=== PATIENT | male | born 1950 | race Caucasian/White ===

== ENCOUNTER → 2019-05-12 13:34 | Outpatient (CLI) | payer MEDICARE, BC, SELFPAY ==
--- NOTE | 2019-05-12 13:37 | US_ITS ---
APPROVED REPORT Exam Type: Lower Extremity Segmental Pressures Video Photographer: Mary Slade RVT Indications Numbness/Tingling CAD Risk Factors Hypertension CAD Cardiac Disease Diabetes History of Smoking Pressures/Indices Right Indices Left Indices Brachial 120.00 mmHg Brachial 126.00 mmHg Low Thigh 133.00 mmHg 1.06 Low Thigh 123.00 mmHg 0.98 Calf 106.00 mmHg 0.84 Calf 113.00 mmHg 0.90 Ankle(PT) 116.00 mmHg 0.92 Ankle(PT) 102.00 mmHg 0.81 Ankle(DP) 113.00 mmHg 0.90 Ankle(DP) 116.00 mmHg 0.92 Digit 78.00 mmHg 0.62 Digit 76.00 mmHg 0.60 Findings RT SHIRLEY:0.92 LT SHIRLEY:0.81 RT TBI:0.62 LT TBI:0.60 NORMAL WAVEFORMS ROSEY NORMAL PULSES ROSEY Conclusion The left SHIRLEY is slightly low suggesting mild to moderate arterial disease Electronically signed by : Chucky Rosas MD 05/13/2019 09:41:30
== END ==
PROVIDERS: PCP Family Medicine; Visit Provider Physician Assistant
DX: I73.9 Peripheral vascular disease, unspecified (principal)
CPT/HCPCS: 93923

== ENCOUNTER → 2022-03-13 12:51 | Outpatient (CLI) | payer MEDICARE, BC, SELFPAY ==
[2022-03-13 12:57] LABS: Coronavirus 19, PCR Not Detected (NotDetected); Influenza A, PCR Not Detected (NotDetected); Influenza B, PCR Not Detected (NotDetected)
[2022-03-13 13:33] LABS: Basophils # 0.1 K/mm3 (0-0.2); Basophils % 1.2 % (0.1-2.0); Eosinophils # 0.3 K/mm3 (0.0-0.4); Eosinophils % 2.7 % (0.1-12.0); Hematocrit 46.6 % (42.0-52.0); Hemoglobin 15.4 g/dL (14.1-18.0); Lymphocytes # 2.2 K/mm3 (0.7-4.5); Lymphocytes % 23.5 % (10-50); Mean Corpuscular HGB Conc 33.1 g/dL (31.8-35.4); Mean Corpuscular Hemoglobin 29.5 pg (27.0-31.2); Mean Corpuscular Volume 89.1 fl (80-94); Mean Platelet Volume 8.5 fl (7.4-10.4); Monocytes # 0.5 K/mm3 (0.1-1.0); Monocytes % 5.9 % (1.7-9.3); Neutrophils # 6.2 K/mm3 (1.8-7.8); Neutrophils % 66.7 % (37.0-80.0); Platelet Count 239 K/mm3 (142-424); Red Blood Count 5.24 M/mm3 (4.60-6.20); Red Cell Distribution Width 14.4 % (11.5-17.5); White Blood Count 9.3 K/mm3 (4.8-10.8)
[2022-03-13 14:14] LABS: Chloride 106 mmol/L (98-107); Potassium 4.5 mmoL/L (3.5-5.1); Sodium 138 mmol/L (136-145)
[2022-03-13 14:17] LABS: Blood Urea Nitrogen 11 mg/dl (9-20); Estimated Glomerular Filt Rate 96 ml/min (>60); GFR (African American) 116 ML/MIN (>60)
[2022-03-13 14:18] LABS: Anion Gap 11.5 mEq/L (5-15); Calcium 8.9 mg/dl (8.4-10.2); Carbon Dioxide 25 mmol/L (22.0-30.0); Glucose 243 mg/dl (74-100)
== END ==
PROVIDERS: PCP Family Medicine; Visit Provider Internal Medicine
DX: I11.9 Hypertensive heart disease without heart failure; I20.0 Unstable angina; R00.1 Bradycardia, unspecified; R06.09 Other forms of dyspnea; Z95.5 Presence of coronary angioplasty implant and graft; I63.9 Cerebral infarction, unspecified; Z01.812 Encounter for preprocedural laboratory examination; Z20.822 Contact with and (suspected) exposure to COVID-19
CPT/HCPCS: 36415; 80048; 85025; C9803; U0003; U0005

== ENCOUNTER 2022-03-16 08:18 | Day surgery (SDC) | payer MEDICARE, BC, SELFPAY ==
[2022-03-16] VITALS (15 sets, daily range): BP systolic 126–218; BP diastolic 61–121; PULSE 54–68; RESP 18–19; TEMP 36.6; O2SAT 95–98; BMI 48.1
--- NOTE | 2022-03-16 07:06 | IR_ITS ---
APPROVED REPORT Patient Location: Outpatient [employer] Medic: BOY Lora RT (R) PROCEDURES Left heart catheterization Left ventriculogram Selective coronary angiogram Drug-eluting stent deployment to the ostial proximal LAD Drug-eluting stent deployment to the distal left main artery INDICATION Coronary artery disease, Systolic congestive heart failure, Poor candidacy for bypass surgery based on being 300 pounds with numerous comorbidities, Accelerated angina pectoris Informed consent was obtained prior to the procedure. COMPLICATIONS None Estimated Blood Loss: Less than 10 mls TECHNIQUE One percent lidocaine used to anesthetize the right anterior aspect of the wrist. The right radial artery was accessed via the Seldinger technique. A 6 Ivorian sheath was placed in the right radial artery. 2.5 mg of verapamil, 800 mcg of nitroglycerin, 1mg Lidocaine and 5000 U Heparin were given through the arterial sheath. The papa catheter was also used to perform left heart catheterization, left ventriculogram and selective coronary angiogram. At the end the diagnostic angiogram therapeutic heparin was administered. I then broke scrub and discussed with the family the options of either bypass surgery or percutaneous stenting. Carina Alfaro nurse manager lsw accompany me during the discussion with the son daughter and . Because of patient's high BMI and morbid obesity accompanying by numerous comorbidities I suggested bypass surgery may not be the best option for this gentleman. I did discuss percutaneous revascularization and felt as though there was a high likelihood for achieving good success with stenting. All 3 of the family members agreed that stenting would be the best option and bypass surgery would be much higher risk and patient probably was not a candidate based on the above reasons. Because of this it was decided to percutaneous revascularization patient. I rescrubbed and checked an ACT with the ACT out of range. A Choice PT extra-support wire was placed down the LAD and a 3.5 x 26 mm resolute Adithya stent was deployed at 26 benito in the proximal LAD reducing the severe stenosis to 0%. A 4.5 x 12 mm resolute [place] stent was then perfectly placed distally in the left main artery reducing the stenosis to 10 to 20%. An additional 3.5 x 12 mm resolute Adithya stent was then placed in the ostium of the LAD overlapping the first stent which was placed in the LAD and deployed at 20 benito. A 5 mm x 8 mm balloon was then deployed at 20 benito in the distal left main artery to further post dilate reducing the stenosis to less than 10%. KATHY-3 flow was present down the LAD and left main before and after the procedure. After achieving excellent angiographic results the apparatus was removed the sheath was removed good hemostasis was achieved using TR banding patient was transferred to the postop putting in stable condition ANGIOGRAPHIC RESULTS The left main artery Has a distal concentric 60% stenosis The left anterior descending artery As proximal 70% stenoses followed by mid LAD stent which is widely patent with minimal in-stent restenosis The circumflex artery Is a dominant system and gives rise to a moderate sized ramus intermedius which has a proximal 60 to 70% stenosis which tapers into a smaller vessel. The circumflex artery itself has the 50% to 70% stenosis in the proximal segment however the vessel is only 2 mm in this area. Furthermore it supplies a small amount of myocardium. Distally this vessel has an additional 80% concentric stenosis where the vessel was approximately 1.5 mm The right coronary artery Vestigial in nature and patent with diffuse 40% atheromatous plaque The OFNSECA ventriculogram reveal
[2022-03-16 11:06] LABS: CATHL Activated Clotting Time > 400 SEC (74-125)
--- NOTE | 2022-03-16 11:43 | SUR.PHASEII ---
REPORT GIVEN TO RANDI RUBALCAVA RN IN POST OP
--- NOTE | 2022-03-16 12:28 | PC.NURSE ---
1138-Output - Urinal @ BS - 300 ml 1215- Output urinal- 500ml Urine is light yellow, clear
--- NOTE | 2022-03-16 13:18 | SUR.PHASEII ---
1230- Pt placed in recliner for comfort. Pt eating lunch. Tolerating eating and drinking well. Family at chair side
--- NOTE | 2022-03-16 13:19 | SUR.PHASEII ---
1330- patient reclined in chair watching TV with family at chair side. Pt urinated 450ml
--- NOTE | 2022-03-16 14:17 | HMH.PHACLD ---
Primitivo Sanchez has received discharge medication counseling on the following medications: PATIENT IS CURRENTLY TAKING EFFIENT 10 MG DAILY AND LISINOPRIL 10 MG DAILY. MD ADDING ASPIRIN 81 MG DAILY AND LASIX 40 MG DAILY. PATIENT HAS MYALGIAS WITH STATINS. MD NOT STARTING STATIN OR BETA MIREYA AT THIS TIME.
--- NOTE | 2022-03-16 14:22 | SUR.PHASEII ---
1414- applied sterile 2x2 gauze and tegaderm to radial site . No bleeding noted All instructions reviewed with family and questions answered Pt transported via [facility] escorted out. Pt stable
== END 2022-03-16 14:14 | disposition home or self-care (01) ==
LOC: CATHLAB 08:20
PROVIDERS: PCP Family Medicine; Visit Provider Internal Medicine
DX: I25.110 Atherosclerotic heart disease of native coronary artery with unstable angina pectoris; I11.0 Hypertensive heart disease with heart failure; I50.20 Unspecified systolic (congestive) heart failure; E11.9 Type 2 diabetes mellitus without complications; E66.01 Morbid (severe) obesity due to excess calories; R00.1 Bradycardia, unspecified; R06.09 Other forms of dyspnea; Z95.5 Presence of coronary angioplasty implant and graft; Z68.42 Body mass index [BMI] 45.0-49.9, adult; Z79.4 Long term (current) use of insulin; Z87.891 Personal history of nicotine dependence
CPT/HCPCS: 85347; 92928; 93458; 99152; 99153; C1725; C1760; C1769; C1876; C9600; J1644; Q9967

== ENCOUNTER → 2022-03-30 09:21 | Outpatient (CLI) | payer MEDICARE, BC, SELFPAY | PROVIDERS: PCP Internal Medicine; Visit Provider Internal Medicine | DX: I25.5 Ischemic cardiomyopathy (principal); I50.21 Acute systolic (congestive) heart failure; R06.09 Other forms of dyspnea | CPT/HCPCS: 93306 ==

== ENCOUNTER 2022-03-31 11:28 | Emergency (ER) | payer MEDICARE, BC, SELFPAY ==
[2022-03-31 11:29] VITALS: BP 101/67; PULSE 100; RESP 12; TEMP 36.8; O2SAT 98; BMI 48.2
--- NOTE | 2022-03-31 11:35 | ECG_ITS ---
APPROVED REPORT Exam: Resting ECG HR:93 bpm ECG Measurements Heart Rate 93 AXES QRSd 99 QRS -11 QT 364 T 80 QTc 415 Conclusion ATRIAL FIBRILLATION WITH ABERRANT CONDUCTION OR VENTRICULAR PREMATURE COMPLEXES SEPTAL MYOCARDIAL INFARCTION , PROBABLY OLD [40+ ms Q WAVE IN V1/V2] ABNORMAL ECG UNCONFIRMED REPORT Electronically signed by : Lamine Richard MD 04/03/2022 14:09:38
--- NOTE | 2022-03-31 11:41 | HMH.EDGENADL ---
ED Disposition Clinical Impression: Oliguria Disposition: Home, Self-Care Condition on Discharge: Good Additional Instructions: Decrease your dose of Coreg (Carvedilol) to 6.25 mg twice a day. Take Bumex [address] Pacheco on Sunday. Call Dr. Pacheco this weekend if any worsening or concerns. Referrals: Allen Ding [Primary Care Provider] - - Critical Care Critical Care Time: No Attestation: On , the high probability of a clinically significant, sudden or life threatening deterioration of the following system(s) required my full and direct attention, intervention and personal management. The time I documented below is in addition to time spent performing reported procedures but includes the following listed in this critical care notation. Medical Decision Making - Medical Records Medical records reviewed: Yes: I reviewed the patient's medical records. MR Comment: Reviewed cardiology office note from yesterday and also cardiology office note from 03/13/2022, precardiac cath. He had a cardiac cath on 03/16/2022. Result reviewed, see below. He had a cardiac echo this week, but report is not yet available. - Mitchel Inquiry Pt receiving controlled substance: No Vital Signs: 03/31/22 11:29 03/31/22 12:38 Temperature 98.2 F Temperature Source Oral Pulse Rate 90 Pulse Rate [Right Radial] 100 H Respiratory Rate 12 16 Blood Pressure 98/65 L Blood Pressure [Right Arm] 101/67 L Blood Pressure Mean 80 Blood Pressure Mean [Right Arm] 78 Blood Pressure Source [Right Arm] Automatic Cuff Blood Pressure Position [Right Arm] Sitting 02 Sat by Pulse Oximetry 98 95 Oxygen Delivery Method Room Air Room Air - Lab Data Lab Results 03/31/22 11:40: WBC 12.2 H, RBC 5.88, Hgb 17.0, Hct 53.3 H, MCV 90.6, MCH 29.0, MCHC 32.0, RDW 13.9, Plt Count 375, MPV 9.1, Neut % (Auto) 65.3, Lymph % (Auto) 24.9, [place] % (Auto) 5.5, Eos % (Auto) 2.5, Baso % (Auto) 1.7, Neut # (Auto) 8.0 H, Lymph # (Auto) 3.1, [place] # (Auto) 0.7, Eos # (Auto) 0.3, Baso # (Auto) 0.2 03/31/22 11:40: Sodium 137, Potassium 4.2, Chloride 102, Carbon Dioxide 27, Anion Gap 12.2, BUN 23 H, Creatinine 1.30 H, Estimated Creat Clear 48, Estimated GFR 55 L, Est GFR ( Amer) 66, Glucose 280 H, Calcium 9.3, Total Bilirubin 0.5, AST 27, ALT 25, Alkaline Phosphatase 152 H, NT-Pro-B Natriuret Pep 587 H, Total Protein 7.2, Albumin 3.9, Globulin 3.3 H, Albumin/Globulin Ratio 1.2 03/31/22 11:53: Urine Color Yellow, Urine Appearance Clear, Urine pH 5.5, Ur Specific [place] 1.015, Urine Protein Negative, Urine Glucose (UA) 3+, Urine Ketones Negative, Urine Blood Trace-i, Urine Nitrate Negative, Urine Bilirubin Negative, Urine Urobilinogen 0.2, Ur Leukocyte Esterase Negative, Urine RBC Occasional, Urine WBC Occasional, Ur Squamous Epith Cells Occasional, Urine Bacteria Trace Result diagrams: 03/31/22 11:40 03/31/22 11:40 Orders (Tests/Meds): ED MEDICATIONS Generic Name Dose Route Start Last Admin Trade Name Freq PRN Reason Stop Dose Admin Sodium Chloride 10 ml 03/31/22 12:19 Sodium Chloride 0.9% 10ml Flush Syringe IV 04/30/22 12:18 NEEDED PRN Maintain IV Site Recent cardiac cath: PROCEDURES Left heart catheterization Left ventriculogram Selective coronary angiogram Drug-eluting stent deployment to the ostial proximal LAD Drug-eluting stent deployment to the distal left main artery INDICATION Coronary artery disease, Systolic congestive heart failure, Poor candidacy for bypass surgery based on being 300 pounds with numerous comorbidities, Accelerated angina pectoris Informed consent was obtained prior to the procedure. COMPLICATIONS None Estimated Blood Loss: Less than 10 mls TECHNIQUE One percent lidocaine used to anesthetize the right anterior aspect of the wrist. The right radial artery was accessed via the Seldinger technique. A 6 Burmese sheath was placed in the right radial artery. 2.5 mg
[2022-03-31 12:22] LABS: Microscopic, Urine URINE MICROSCOPIC (MICROSCOPIC)
[2022-03-31 12:25] LABS: Appearance,Urine CLEAR (Clear); Bilirubin,Urine Negative (Negative); Blood, Urine TRACE-I (Negative); Color,Urine YELLOW (Yellow); Glucose,Urine (UA) 3+ (Negative); Ketones,Urine Negative (Negative); Leukocyte Esterase,Urine Negative (Negative); Nitrate,Urine Negative (Negative); PH,Urine 5.5 (5.0-8.5); Protein,Urine Negative (Negative); Specific Gravity, Urine 1.015 (1.005-1.030); Urobilinogen,Urine 0.2 EU/dl (0.2)
[2022-03-31 12:25] LABS: Basophils # 0.2 K/mm3 (0-0.2); Basophils % 1.7 % (0.1-2.0); Eosinophils # 0.3 K/mm3 (0.0-0.4); Eosinophils % 2.5 % (0.1-12.0); Hematocrit 53.3 % (42.0-52.0); Lymphocytes # 3.1 K/mm3 (0.7-4.5); Lymphocytes % 24.9 % (10-50); Mean Corpuscular Volume 90.6 fl (80-94); Mean Platelet Volume 9.1 fl (7.4-10.4); Monocytes # 0.7 K/mm3 (0.1-1.0); Monocytes % 5.5 % (1.7-9.3); Neutrophils % 65.3 % (37.0-80.0); Platelet Count 375 K/mm3 (142-424); Red Blood Count 5.88 M/mm3 (4.60-6.20); Red Cell Distribution Width 13.9 % (11.5-17.5); White Blood Count 12.2 K/mm3 (4.8-10.8)
[2022-03-31 12:26] LABS: Chloride 102 mmol/L (98-107); Potassium 4.2 mmoL/L (3.5-5.1); Sodium 137 mmol/L (136-145)
[2022-03-31 12:29] LABS: Alanine Aminotransferase 25 U/L (12-78); Albumin Level 3.9 g/dl (3.5-5.0); Albumin/Globulin Ratio 1.2 (1.1-1.8); Alkaline Phosphatase 152 U/L (38-126); Anion Gap 12.2 mEq/L (5-15); Aspartate Amino Transferase 27 U/L (17-59); Bilirubin,Total 0.5 mg/dl (0.2-1.3); Blood Urea Nitrogen 23 mg/dl (9-20); Calcium 9.3 mg/dl (8.4-10.2); Carbon Dioxide 27 mmol/L (22.0-30.0); Creatinine Clearance Estimated 48 mL/min (50-200); Estimated Glomerular Filt Rate 55 ml/min (>60); GFR (African American) 66 ML/MIN (>60); Globulin 3.3 g/dL (1.3-3.2); Glucose 280 mg/dl (74-100); Total Protein,Serum 7.2 g/dl (6.3-8.2)
[2022-03-31 12:38] VITALS: BP 98/65; PULSE 90; RESP 16; O2SAT 95
[2022-03-31 12:38] LABS: NT Pro Brain Natriuretic Pep. 587 pg/mL (0-125)
--- NOTE | 2022-03-31 12:44 | PC.NURSE ---
JIN BAER speaking with dr. corbin
[2022-03-31 12:45] LABS: Bacteria,Urine Trace /lpf; RBC,Urine Occasional #/hpf (0-3); Squamous Epithelial Cell,Urine Occasional #/hpf (0-5); WBC,Urine Occasional #/hpf (0-3)
--- NOTE | 2022-03-31 12:57 | PC.NURSE ---
JIN BAER speaking with dr. corbin
[2022-03-31 13:23] VITALS: BP 135/84; PULSE 88; RESP 20; TEMP 36.8; O2SAT 96
== END 2022-03-31 13:24 | disposition home or self-care (01) ==
PROVIDERS: Emergency Provider Emergency Medicine; PCP Family Medicine
DX: R34 Anuria and oliguria (principal); I11.0 Hypertensive heart disease with heart failure; I50.9 Heart failure, unspecified; I65.22 Occlusion and stenosis of left carotid artery; I25.119 Atherosclerotic heart disease of native coronary artery with unspecified angina pectoris; I48.91 Unspecified atrial fibrillation; I73.9 Peripheral vascular disease, unspecified; R78.5 Finding of other psychotropic drug in blood; E11.9 Type 2 diabetes mellitus without complications; Z79.01 Long term (current) use of anticoagulants; Z79.84 Long term (current) use of oral hypoglycemic drugs; Z79.899 Other long term (current) drug therapy; Z88.5 Allergy status to narcotic agent; Z88.8 Allergy status to other drugs, medicaments and biological substances; Z91.048 Other nonmedicinal substance allergy status; Z95.5 Presence of coronary angioplasty implant and graft; Z87.891 Personal history of nicotine dependence
CPT/HCPCS: 51702; 80053; 81001; 83880; 85025; 93005; 99285

== ENCOUNTER 2022-11-08 08:23 | Day surgery (SDC) | payer MEDICARE, BC, SELFPAY ==
[2022-11-08] VITALS (13 sets, daily range): BP systolic 98–147; BP diastolic 52–72; PULSE 42–63; RESP 16–20; O2SAT 95–98; BMI 48.7
--- NOTE | 2022-11-08 | CA_ITS ---
APPROVED REPORT EXAM: Comprehensive 2D, Doppler, and color-flow Echocardiogram Oil Well Engineer: Adalgisa Real RT(R) Ht: 5 ft 6 in Wt: 302lbs BSA: 2.38 BP: 130/68 mmHg Indications: CP, ex smoker, HTN, DM, SMALL, obesity, hyperlipidemia, CAD, CM, dysrhythmia noted. 2D Dimensions LVOT 2.10 cm (M/F) 1.5-2.5 M-Mode Dimensions RVDd 2.95 cm (0.9-2.6) LA Diam 4.99 cm (1.9-4.0) LVDd 5.62 cm (3.5-5.7) Ao Diam 2.83 cm (2.0-3.7) LVDs 4.02 cm (3.5-5.7) IVSd 1.12 cm (0.6-1.1) PWd 0.98 cm (0.6-1.1) EF (Teich) 54.30% FS 28.50% EDV (Teich) 154.90 mL ESV (Teich) 70.80 mL LV Diastology E Decel Time 290.00 (160-240 msec) E/A Ratio 0.9 LAT E' 7.70 (<10 cm/sec) E/LAT E' Ratio 7.79 (>14) Mitral Valve MV E Max Marco A. 60.00 (40-130 cm/s) MV A Velocity 67.00 (40-130 cm/s) E/A Ratio 0.89 MV Decel. Time 290.00 (160-240 ms) MV PHT 85.00 ms Left Ventricle Left atrium is mildly enlarged, left ventricle is normal size, mild concentric left ventricular hypertrophy, estimated ejection fraction 55% with no regional wall motion abnormality, grade 1 diastolic dysfunction seen without tissue Doppler evidence of raise left atrial pressure. Right Ventricle Right atrium and right ventricle are mildly enlarged with normal contractility. Aortic Valve Aortic valve is minimally thickened and fibrosed there is no aortic stenosis or aortic insufficiency. Mitral Valve Mitral valve is grossly normal, there is trace mitral regurgitation. Tricuspid Valve Tricuspid valve grossly normal, there is trace tricuspid regurgitation, tricuspid regurgitation jet plus is inadequate for calculation of the right ventricular systolic pressure. Pulmonic Valve Pulmonic valve is poorly visualized. Great Vessels Aortic root is normal size. Inferior vena cava is poorly visualized. Pericardium No significant pericardial effusion noted. Conclusion 1. Mild biatrial lodgment, normal left ventricular size mild concentric left ventricular hypertrophy, estimated ejection fraction 55% with no regional wall motion abnormality, grade 1 diastolic dysfunction seen without tissue Doppler evidence of late left atrial pressure. 2. Mildly enlarged right ventricle with normal contractility. 3. Trace mitral and tricuspid regurgitation. 4. No significant pericardial effusion noted. 5. Inferior vena cava is poorly visualized. Electronically signed by : Daniel Carlson MD 11/08/2022 12:59:19
--- NOTE | 2022-11-08 07:17 | IR_ITS ---
APPROVED REPORT Patient Location: Outpatient PROCEDURES Left heart catheterization Left ventriculogram Selective coronary angiogram Drug-eluting stent deployment to the proximal and mid and distal circumflex artery INDICATION Unstable angina, Coronary artery disease Informed consent was obtained prior to the procedure. COMPLICATIONS None Estimated Blood Loss: Less than 10 mls TECHNIQUE One percent lidocaine used to anesthetize the right anterior aspect of the wrist. The right radial artery was accessed via the Seldinger technique. A 6 Kittitian sheath was placed in the right radial artery. 2.5 mg of verapamil, 800 mcg of nitroglycerin, 1mg Lidocaine and 5000 U Heparin were given through the arterial sheath. The papa catheter was also used to perform left heart catheterization, left ventriculogram and selective coronary angiogram. At the end the diagnostic angiogram therapeutic heparin was administered giving a therapeutic ACT and a guide catheter was placed in left main artery followed by Choice PT extra-support wire being placed in the circumflex artery. Guide liner was required. A 2 mm x 30 mm resolute Adithya stent was deployed and deployed at 20 benito. An additional 2 mm x 12 mm resolute Adithya stent was placed distal to the for stent yet still overlapping it and deployed at 16 benito reducing the stenosis to 0%. A 2 mm x 20 mm balloon was required to predilate the stenosis to allow delivery of the 2 stents. KATHY-3 flow was present before and after the procedure. At the end the procedure the apparatus was removed the sheath was removed good hemostasis was achieved using TR banding patient was transferred to the postop putting in stable condition ANGIOGRAPHIC RESULTS The left main artery Has a stent in the proximal mid distal segment. There is an eccentric mid vessel 30% stenosis. The left anterior descending artery Is proximally normal and then has a stent in the proximal to mid segment which is widely patent free of in-stent restenosis with excellent transitioning in the proximal segment. The mid portion of the LAD stent has eccentric 30% stenosis. A large diagonal artery is widely patent. The circumflex artery Is a large dominant system and gives rise to a large ramus intermedius which has a proximal eccentric 40 to 50% stenosis. A high obtuse marginal artery also has diffuse 30% proximal mid vessel stenoses. The true circumflex artery itself has a proximal 80% stenosis mid vessel 80% stenosis and a distal concentric calcified 80 to 90% stenosis The right coronary artery Vestigial normal The FONSECA ventriculogram reveals Preserved at 50 to 55% The left ventricular end-diastolic pressure 30 mmHg IMPRESSION Coronary disease as described above Successful stenting of the proximal mid distal circumflex artery severe to critical disease reduced to 0% with 2 contiguous drug-eluting stents Preserved ejection fraction Elevated LVEDP PLAN 1. Dual antiplatelet therapy 2. Risk factor modification 3. Cardiac rehabilitation 4. Avoidance of tobacco products 5. Treatment of diastolic dysfunction 6. LDL less than 55 to be achieved with high intensity statin Electronically signed by : Jose Alejandro Pacheco MD 11/17/2022 11:07:50
[2022-11-08 09:33] LABS: Basophils # 0.1 K/mm3 (0-0.2); Basophils % 1.1 % (0.1-2.0); Eosinophils # 0.4 K/mm3 (0.0-0.4); Eosinophils % 3.4 % (0.1-12.0); Hematocrit 50.2 % (42.0-52.0); Hemoglobin 16.4 g/dL (14.1-18.0); Lymphocytes # 2.3 K/mm3 (0.7-4.5); Lymphocytes % 21.6 % (10-50); Mean Corpuscular HGB Conc 32.7 g/dL (31.8-35.4); Mean Corpuscular Hemoglobin 28.8 pg (27.0-31.2); Mean Corpuscular Volume 88.1 fl (80-94); Mean Platelet Volume 8.5 fl (7.4-10.4); Monocytes # 0.9 K/mm3 (0.1-1.0); Monocytes % 7.9 % (1.7-9.3); Neutrophils # 7.1 K/mm3 (1.8-7.8); Platelet Count 235 K/mm3 (142-424); Red Cell Distribution Width 14.7 % (11.5-17.5); White Blood Count 10.7 K/mm3 (4.8-10.8)
[2022-11-08 11:05] LABS: Chloride 114 mmol/L (98-107); Potassium 4.2 mmoL/L (3.5-5.1); Sodium 143 mmol/L (136-145)
[2022-11-08 11:08] LABS: Anion Gap 11.2 mEq/L (5-15); Blood Urea Nitrogen 18 mg/dl (9-20); Calcium 8.2 mg/dl (8.4-10.2); Carbon Dioxide 22 mmol/L (22.0-30.0); Creatinine Clearance Estimated 62 mL/min (50-200); Estimated Glomerular Filt Rate 83 ml/min (>60); GFR (African American) 101 ML/MIN (>60); Glucose 131 mg/dl (74-100)
[2022-11-08 13:00] LABS: CATHL Activated Clotting Time > 400 SEC (74-125)
--- NOTE | 2022-11-08 15:27 | HMH.PHACL ---
[facility] Cluster Bore Operator Discharge Med Quarantine Officer: Primitivo Sanchez has received discharge medication counseling on the following medications: -NO STATIN DUE TO MYALGIAS -NO ASPIRIN DUE TO BLEEDING RISK -PLAVIX (BLOOD THINNER, DAILY, BLEED/BRUISE RISK, BLEED LOCATION AND APPEARANCE, BUMP HEAD = GO TO ER, SOB POSSIBLE) -CARVEDILOL (ON PREVIOUSLY, NO QUESTIONS) -ENTRESTO (ON PREVIOUSLY, NO QUESTIONS) -METFORMIN (HOLD UNTIL 11/10/22) PATIENT STATED IN REGARDS TO NEW MEDICATIONS THAT HE WASN'T GOING TO TAKE IT IF IT WILL AFFECT HIS MUSCLES OR CAUSE HIM NOSEBLEEDS. COUNSELED OVER IMPORTANCE OF TAKING TO PREVENT STENT CLOSURE OR STROKE, PATIENT STATES HE'D RATHER SUFFER THAT THEN HAVE TO DEAL WITH NOSEBLEEDS/WAKING UP IN THE MIDDLE OF THE NIGHT FEELING LIKE HE WAS CHOKING FROM NOSEBLEEDS. PATIENT STATES YOU ALL SHOULD BE MORE CONSIDERATE ON HOW I FEEL REGARDING NEW MEDICATIONS . PATIENT AND VERBALIZED NO QUESTIONS AT THIS TIME.
== END 2022-11-08 15:29 | disposition home or self-care (01) ==
PROVIDERS: PCP Family Medicine; Visit Provider Internal Medicine
DX: I25.110 Atherosclerotic heart disease of native coronary artery with unstable angina pectoris (principal); E78.5 Hyperlipidemia, unspecified; E11.9 Type 2 diabetes mellitus without complications; Z79.4 Long term (current) use of insulin; I25.5 Ischemic cardiomyopathy; T82.855A Stenosis of coronary artery stent, initial encounter; Y83.1 Surgical operation with implant of artificial internal device as the cause of abnormal reaction of the patient, or of later complication, without mention of misadventure at the time of the procedure; Z79.899 Other long term (current) drug therapy; Z79.01 Long term (current) use of anticoagulants; I11.9 Hypertensive heart disease without heart failure; E66.01 Morbid (severe) obesity due to excess calories; Z68.42 Body mass index [BMI] 45.0-49.9, adult
CPT/HCPCS: 80048; 85025; 85347; 92928; 93306; 93458; 99152; 99153; C1725; C1760; C1769; C1876; C9600; J1644; Q9967

== ENCOUNTER 2023-03-06 06:49 | Day surgery (SDC) | payer MEDICARE, BC, SELFPAY ==
[2023-03-05 10:06] VITALS: BMI 48.4
[2023-03-06 07:20] VITALS: BP 153/60; PULSE 54; RESP 18; TEMP 36.2; O2SAT 96
[2023-03-06 07:28] LABS: POC Glucose,Bedside 119 (70-110)
[2023-03-06 08:20] VITALS: BP 178/96; PULSE 51; RESP 16; O2SAT 97
[2023-03-06 08:25] VITALS: BP 164/74; PULSE 53; RESP 16; O2SAT 99
[2023-03-06 08:30] VITALS: BP 151/69; PULSE 49; RESP 17; O2SAT 100
[2023-03-06 08:35] VITALS: BP 151/66; PULSE 48; RESP 16; O2SAT 100
[2023-03-06 08:37] VITALS: BP 126/84; PULSE 52; RESP 18; TEMP 36.1; O2SAT 94
== END 2023-03-06 08:48 | disposition home or self-care (01) ==
LOC: OR 06:50
PROVIDERS: PCP Family Medicine; Visit Provider Ophthalmology
DX: E11.36 Type 2 diabetes mellitus with diabetic cataract (principal); H25.9 Unspecified age-related cataract
CPT/HCPCS: 66984; 82962; V2632

== ENCOUNTER 2023-03-20 06:25 | Day surgery (SDC) | payer MEDICARE, BC, SELFPAY ==
[2023-03-15 14:14] VITALS: BMI 36.5
[2023-03-20] VITALS (7 sets, daily range): BP systolic 152–213; BP diastolic 69–93; PULSE 50–56; RESP 18; TEMP 36.1–36.4; O2SAT 95–100
[2023-03-20 07:06] LABS: POC Glucose,Bedside 85 (70-110)
== END 2023-03-20 08:30 | disposition home or self-care (01) ==
PROVIDERS: PCP Family Medicine; Visit Provider Ophthalmology
DX: E11.36 Type 2 diabetes mellitus with diabetic cataract (principal); H25.9 Unspecified age-related cataract
CPT/HCPCS: 66982; 82962; V2632

== ENCOUNTER 2024-03-19 15:15 | Outpatient (CLI) | payer MEDICARE, BC, SELFPAY ==
--- NOTE | 2024-03-19 | CA_ITS ---
APPROVED REPORT EXAM: Comprehensive 2D, Doppler, and color-flow Echocardiogram Tire Beader Maker: PIERCE Sexton, RVS Ht: 5 ft 6 in Wt: 257lbs BSA: 2.22 BP: 95/52 mmHg Indications: H/O CM,Pre-op assessment for throat cancer, HTN, DM, Obesity, HLD 2D Dimensions IVSd 0.98 cm M: 0.6-1.2 LVEF (Visual) 48.20 % PWd 1.22 cm M: 0.6 - 1.2 LA Volume 70.30 mL LVDd 5.99 cm M: 4.2 - 5.9 LA Volume Index 31.52 mL/m2 (M/F) 16-34 LVDs 4.51 cm M: 2.5 - 4.0 Left Atrium 4.69 cm M: 3.0 - 4.0 M-Mode Dimensions RVDd 2.82 cm (0.9-2.6) LA Diam 5.45 cm (1.9-4.0) LVDd 5.19 cm (3.5-5.7) LVDs 3.34 cm (3.5-5.7) IVSd 1.33 cm (0.6-1.1) PWd 1.13 cm (0.6-1.1) EF (Teich) 64.80% EPSs 0.97 cm FS 35.60% EDV (Teich) 128.90 mL TAPSE 2.38 (<1.7) ESV (Teich) 45.40 mL LV Diastology E Decel Time 287 (160-240 msec) E/A Ratio 0.90 MED A' 6.40 cm/s LAT A' 8.50 cm/s Aortic Valve LISANDRO Index 0.79 cm2/m2 AoV Peak Marco A. 146.0 (50-130 cm/s) AO Peak GR. 8.50 mmHg AO Mean GR. 4.20 (<5 mmHg) AO VTI 32.1 (18-25 cm) LISANDRO (VTI) 1.81 (2.5-4.5 cm2) Mitral Valve MV A Velocity 85.0 (40-130 cm/s) E/A Ratio 0.90 MV Mean Gr. 1.30 (<2mmHg) Pulmonary Valve PV Peak Velocity 108.0 (50-150 cm/s) MO End VMAX 133.0 cm/s Tricuspid Valve TR P. Velocity 188.00 cm/s RAP Estimate 10.00 mmHg RVSP 24.10 mmHg Left Ventricle The left ventricle is normal size. The left ventricular systolic function is normal. The left ventricular ejection fraction is within the normal range. There is increased LV wall thickness. There is normal LV segmental wall motion. The left ventricular diastolic function is normal. LVEF is 55%. Right Ventricle The right ventricle is normal size. The right ventricular systolic function is normal. Atria Left atrium is mildly dilated. The right atrium size is normal. There is no Doppler evidence of interatrial shunt. Aortic Valve The aortic valve is mildly thickened. There is no aortic valvular stenosis. Trace aortic regurgitation. Mitral Valve The mitral valve is normal in structure. No evidence of mitral valve stenosis. Mild mitral regurgitation. Tricuspid Valve The tricuspid valve leaflets are thin and pliable. Trace tricuspid regurgitation. There is insufficient TR jet to estimate RVSP. Pulmonic Valve The pulmonary valve is normal in structure. Mild pulmonic regurgitation. Great Vessels The aortic root is normal in size. The ascending aorta is normal in size. IVC is normal in size and collapses >50% with inspiration. Pericardium There is no pericardial effusion. Other Information Study Quality: Fair Conclusion Normal biventricular systolic function. Mild LA dilation. Mild MR. Electronically signed by : Giselle Larose MD 03/19/2024 22:16:22
== END 2024-03-19 23:59 | disposition home or self-care (01) ==
LOC: RT 15:16
PROVIDERS: PCP Family Medicine; Visit Provider Physician Assistant
DX: I25.10 Atherosclerotic heart disease of native coronary artery without angina pectoris (principal); I42.9 Cardiomyopathy, unspecified
CPT/HCPCS: 93306

== ENCOUNTER 2024-10-30 08:20 | Outpatient (CLI) | payer MEDICARE, BC, SELFPAY ==
--- NOTE | 2024-10-30 08:23 | CA_ITS ---
APPROVED REPORT EXAM: Limited 2D Echocardiogram Clerical Associate: Mary Slade RVT Ht: 5 ft 6 in Wt: 212lbs BSA: 2.05 BP: 150/81 mmHg Indications: FATIGUE,CP,HTN,DM,HLD,THROAT CA HX,EF CHECK,HX OF CM 2D Dimensions IVSd 1.23 cm M: 0.6-1.2 LVEF (Visual) 62.50 % PWd 1.09 cm M: 0.6 - 1.2 LVDd 4.52 cm M: 4.2 - 5.9 LVDs 3.00 cm M: 2.5 - 4.0 M-Mode Dimensions LA Diam 4.98 cm (1.9-4.0) Other Information Study Quality: Fair Conclusion This is a limited TTE to evaluate for LV systolic function. Limited windows are obtained. The left ventricle is normal in size. There is increased LV wall thickness. There is normal global LV systolic function. No regional wall motion abnormalities are noted. LVEF is 60%. Electronically signed by : Giselle Larose MD 10/30/2024 12:39:53
== END 2024-10-30 23:59 | disposition home or self-care (01) ==
PROVIDERS: PCP Family Medicine; Visit Provider Physician Assistant
DX: I25.5 Ischemic cardiomyopathy (principal); I25.10 Atherosclerotic heart disease of native coronary artery without angina pectoris; Z95.5 Presence of coronary angioplasty implant and graft; R53.83 Other fatigue
CPT/HCPCS: 93308

== ENCOUNTER 2025-05-06 07:33 | Outpatient (CLI) | payer MEDICARE, SELFPAY ==
--- OUTSIDE RECORDS SUMMARY | 2025-05-06 07:35 | XMS_ITS | Encounter Summary ---
Author Organization [facility] Address [address] [place] [address] Care Team Providers Care Electric Locomotive Firer/Fireman Name Role Phone Allen Ding MD Primary Care Provider [phone] Reason for Visit * Reason Comments Med Refill Encounter Details Date Type Department Care Team (Late st Contact Info) Description 02/22/2024 Refill [facility] [address] [place] [address] Allen Ding MD [address] [facility] [place] [address] Social History Tobacco Use Types Packs/Day Years Used Date Smoking Tobacco: Former Cigarettes 0.5 2 0 12/01/2007 - 11/30/2009 Smokeless Tobacco: Current Chew Alcohol Use Standard Drinks/Week Comments Never 0 (1 standard drink = 0.6 oz pur e alcohol) PHQ-2 Answer Date Recorded Retired PHQ-9: Brief Depression Severity Measure Score 0 04/25/2023 PHQ-2 Answer Date Recorded Retired PHQ-9: Brief Depression Severity Measure Score 0 11/13/2023 Sex and Gender Information Value Date Recorded Sex Assigned at Not on file Legal Sex Male 1:41 PM EDT Gender Identity Not on file Sexual Orientation Not on file documented as of this encounter Plan of Treatment Upcoming Encounters Date Type Department Care Team (Late st Contact Info) Description 05/29/2025 9:00 AM EDT Office Visit [facility] [address] [place] [id number] Allen Ding MD [address] [facility] [place] [address] documented as of this encounter Visit Diagnoses Not on filedocumented in this encounter Care Teams Electric Locomotive Firer/Fireman Relationship Specialty Start Date End Date Allen Ding MD [address] [place] [address] PCP - General 09/20/15 documented as of this encounter
--- OUTSIDE RECORDS SUMMARY | 2025-05-06 07:35 | XMS_ITS | Encounter Summary ---
Author Organization [facility] Address [address] [place] [address] Care Team Providers Care Drop Press Hand Name Role Phone Allen Ding MD Primary Care Provider Reason for Visit * Reason Onset Date Comments Med Refill 04/12/2023 Encounter Details Date Type Department Care Team (Late st Contact Info) Description 04/12/[address] [facility] [address] [place] [id number] Allen Ding MD [address] [place], [place] [id number] Acute idiopathic gout of multiple sites; Acute gout of ankle, unspecified cause, unspecified laterality Social History Tobacco Use Types Packs/Day Years Used Date Smoking Tobacco: Former Smokeless Tobacco: Current Chew PHQ-2 Answer Date Recorded Retired PHQ-9: Brief Depression Severity Measure Score 0 09/29/2022 Sex and Gender Information Value Date Recorded Sex Assigned at Not on file Legal Sex Male 1:41 PM EDT Gender Identity Not on file Sexual Orientation Not on file documented as of this encounter Miscellaneous Notes * Telephone Encounter - Annelise Mitchell RegSched Rep - 04/12/2023 3:21 PM EDT Caller: Crystal Sanchez Relationship: Emergency Contact Best call back number: [phone] Requested Prescriptions: Requested Prescriptions Pending Prescriptions Disp Refills colchicine 0.6 MG tablet 30 tablet 1 Sig: TAKE 1 TABLET BY MOUTH 4 TIMES DAILY. STOP IF DIARRHEA. HYDROcodone-acetaminophen (NORCO) 5-325 MG per tablet Pharmacy where request should be sent: [id number] - [facility] - [place], [place] - [address] [facility] - [phone] - [phone] FX Last office visit with prescribing clinician: 01/05/2023 Last telemedicine visit with prescribing clinician: Visit date not found Next office visit with prescribing clinician: 04/25/2023 Additional details provided by patient: PATIENTS STATES HE HAS TODAY LEFT OF MEDICATION ONLY: 04.12.23. SHE STATES THE HYDROCODONE IS RUNNING LOW WELL. SHE STATES SHE NEEDS IT REFILLED MARTHA. Bisi Plummer Rep 04/12/23 15:21 EDT documented in this encounter Plan of Treatment Upcoming Encounters Date Type Department Care Team (Late st Contact Info) Description 05/29/2025 9:00 AM EDT Office Visit [facility] [address] [place] [phone] Allen Ding MD [address] [place] [address] documented as of this encounter Visit Diagnoses Diagnosis Acute idiopathic gout of multiple sites Acute gout of ankle, unspecified cause, unspecified laterality documented in this encounter Care Teams Drop Press Hand Relationship Specialty Start Date End Date Allen Ding MD [address] [place] [address] PCP - General 09/20/15 documented as of this encounter
--- OUTSIDE RECORDS SUMMARY | 2025-05-06 07:35 | XMS_ITS | Encounter Summary ---
Author Organization [facility] Address [address] [place] [address] Care Team Providers Care Auditing Clerk Name Role Phone Allen Ding MD Primary Care Provider [phone] Encounter Details Date Type Department Care Team (Late st Contact Info) Description 03/09/2025 Results Follow-Up [facility] [address] [facility] [address] Allen Ding MD [address] [facility] [address] Social History Tobacco Use Types [...] Retired PHQ-9: Brief Depression Severity Measure Score 3 05/27/2024 Sex and Gender Information Value Date Recorded Sex Assigned at Not on file Legal Sex Male 1:41 PM EDT Gender Identity Not on file Sexual Orientation Not on file documented as of this encounter Plan of Treatment Upcoming Encounters Date Type Department Care Team (Late st Contact Info) Description 05/29/2025 9:00 AM EDT Office Visit [facility] [address] [facility] [place] [address] Allen Ding MD [address] [place] [address] documented as of this encounter Visit Diagnoses Not on filedocumented in this encounter Additional Health Concerns Assessment Noted Time PHQ-2 Depression Total Score: 3 05/27/20 24 8:19 AM EDT documented as of this encounter Care Teams Auditing Clerk Relationship Specialty Start Date End Date Allen Ding MD [address] [place] [address] PCP - General 09/20/15 documented as of this encounter
--- OUTSIDE RECORDS SUMMARY | 2025-05-06 07:35 | XMS_ITS | Encounter Summary ---
Author Organization [facility] Address [address] [place] [id number] Care Team Providers Care Hotel Services Sales Representative Name Role Phone Allen Ding MD Primary Care Provider Reason for Referral * Medical Care (Routine) - Closed Specialty Diagnoses / Procedures Referred By Contac t Referred To Contact Diagnoses Uncontrolled nonfamilial obstructive sleep apnea Procedures Overnight Sleep Oximetry Study Allen Ding MD [address] [place] [address] Phone: tel: fax: [place] [address] Phone: tel: fax: Referral ID Status Reason Start Date Expiration Date Visits Re quested Visits Authorized [id number] Closed 12/03/2024 03/04/2026 1 1 Encounter Details Date Type Department Care Team (Late st Contact Info) Description 12/03/2024 Results Follow-Up [facility] [address] [place] [address] Allen Ding MD [address] [place] [address] Social History Tobacco Use Types [...] Description 05/29/2025 9:00 AM EDT Office Visit [facility] [address] [place] [phone] Allen Ding MD [address] [place] [address] documented as of this encounter Results * Overnight Sleep Oximetry Study (12/03/2024) Allen Ding MD RESPIRATORY CARE ORDERABLES Fin al Result documented in this encounter Visit Diagnoses Diagnosis Uncontrolled nonfamilial obstructive sleep apnea- Primary documented in this encounter Additional Health Concerns Assessment Noted Time PHQ-2 Depression Total Score: 3 05/27/20 24 8:19 AM EDT documented as of this encounter Care Teams Hotel Services Sales Representative Relationship Specialty Start Date End Date Allen Ding MD [address] [place] [address] PCP - General 09/20/15 documented as of this encounter
--- OUTSIDE RECORDS SUMMARY | 2025-05-06 07:35 | XMS_ITS | Encounter Summary ---
Author Organization [facility] Address [address] [place] [address] Care Team Providers Care Licensed Master Social Worker Name Role Phone Allen Ding MD Primary Care Provider [phone] Reason for Visit * Reason Comments Med Refill Encounter Details Date Type Department Care Team (Late st Contact Info) Description 09/14/[address] [facility] [address] [place] [address] Allen Ding MD [address] [place] [address] Type 2 diabetes mellitus without complication, without long-term current use of insulin Social History Tobacco Use Types Packs/Day Years Used Date Smoking Tobacco: Former Smokeless Tobacco: Current Chew PHQ-2 Answer Date Recorded Retired Total Score 0 03/17/2020 Sex and Gender Information Value Date Recorded Sex Assigned at Not on file Legal Sex Male 1:41 PM EDT Gender Identity Not on file Sexual Orientation Not on file documented as of this encounter Plan of Treatment Upcoming Encounters Date Type Department Care Team (Late st Contact Info) Description 05/29/2025 9:00 AM EDT Office Visit [facility] [address] [place] [address] Allen Ding MD [address] [place] [address] documented as of this encounter Visit Diagnoses Diagnosis Type 2 diabetes mellitus without complication, without long-term current use of insulin documented in this encounter Additional Health Concerns Infection Onset Date Last Indicated Resolved Time C.difficile (rule out) 01/09/2023 01/10/202301/15 9:08 PM EDT documented as of this encounter Care Teams Licensed Master Social Worker Relationship Specialty Start Date End Date Allen Ding MD [address] [address] PCP - General 09/20/15 documented as of this encounter
--- OUTSIDE RECORDS SUMMARY | 2025-05-06 07:35 | XMS_ITS | Encounter Summary ---
Author Organization [facility] Address [address] [place] [address] Care Team Providers Care Poultry Farm Laborer Name Role Phone Allen Ding MD Primary Care Provider [phone] Reason for Visit * Reason Comments Med Refill Encounter Details Date Type Department Care Team (Late Contact Info) Description 10/06/2023 Refill [facility] [address] [place] [address] Allen Ding MD [address] [facility] [place] [address] Social History Tobacco Use Types Packs/Day Years Used Date Smoking Tobacco: Former Smokeless Tobacco: Current Chew PHQ-2 Answer Date Recorded Retired PHQ-9: Brief Depression Severity Measure Score 0 04/25/2023 PHQ-2 Answer Date Recorded Retired PHQ-9: Brief Depression Severity Measure Score 0 04/25/2023 Sex and Gender Information Value Date Recorded Sex Assigned at Not on file Legal Sex Male 1:41 PM EDT Gender Identity Not on file Sexual Orientation Not on file documented as of this encounter Plan of Treatment Upcoming Encounters Date Type Department Care Team (Late Contact Info) Description 05/29/2025 9:00 AM EDT Office Visit [facility] [address] [place] [address] Allen Ding MD [address] [facility] [place] [address] documented as of this encounter Visit Diagnoses Not on filedocumented in this encounter Care Teams Poultry Farm Laborer Relationship Specialty Start Date End Date Allen Ding MD [address] [facility] [place] [address] PCP - General 09/20/15 documented as of this encounter
--- OUTSIDE RECORDS SUMMARY | 2025-05-06 07:35 | XMS_ITS | Clinical Summary ---
Author Organization [facility] Address [address] [place] [id number] Care Team Providers Care Resawyer Name Role Phone Allen Ding MD Primary Care Provider [phone] Allergies Active Allergy Reactions Criticality Noted Date Comments Adhesive Tape Rash Low 11/26/2019 Atorvastatin Other (See Comments) 03/10/2016 Rosuvastatin 03/10/2016 Metformin GI Intolerance 04/25/2023 Medications albuterol sulfate HFA 108 (90 Base) MCG/ACT inhalerIndicatio ns:Dyspnea on exertion 1-2 puffs q 4-6 hours PRN 18 g 5 1 Active nitroglycerin (Nitrostat) 0.[address] 1 tablet under the tongue Every 5 (Five) Minutes As Needed for Chest Pain. Seek medical attention if not better 25 tablet 1 2 Active colchicine 0.6 MG tabletIndication s:Acute idiopathic gout of multiple sites TAKE 1 TABLET BY MOUTH 4 TIMES DAILY STOP IF DIARRHEA 30 tablet 2 3 Active Insulin Pen Needle (BD Pen Needle Micro U/F) 32G X 6 MM miscIndications: Type 2 diabetes mellitus with diabetic neuropathy, without long-term current use of insulin 1 daily as directed 100 each 11 4 Active metoclopramide (REGLAN) 10 MG tablet TAKE 1 TABLET BY MOUTH THREE TIMES DAILY 30 MINUTES BEFORE TUBE FEEDINGS 4 Active Morphine 10 MG/5ML solution TAKE 5 ML BY MOUTH EVERY 4 TO 6 HOURS NEEDED 4 Active Morphine (MS CONTIN) 15 MG 12 hr tablet Take 1 tablet by mouth Every 12 (Twelve) Hours. 4 Active naloxone (NARCAN) 4 MG/0.1ML nasal spray ADMINISTER A SINGLE SPRAY INTRANASALLY INTO ONE NOSTRIL. CALL 911. JANUARY REPEAT X1. 4 Active ondansetron (ZOFRAN) 4 MG tablet TAKE 2 TABLETS BY MOUTH TWICE DAILY FOR 20 DAYS 4 Active sucralfate (Carafate) 1 GM/10ML suspensionIndica tions:Radiation gastritis,Gastro esophageal reflux disease, unspecified whether esophagitis present 10 mL PO Q 6 hours PRN 400 mL 4 Active dicyclomine (BENTYL) 20 MG tablet 4 Active potassium chloride (KAYCIEL) 20 mEq/15 mL solution 4 Active Insulin Lispro (HumaLOG KwikPen) 200 UNIT/ML solution pen-injectorIndi cations:Type 2 diabetes mellitus with diabetic neuropathy, without long-term current use of insulin Inject 10 Units under the skin into the appropriate area as directed 3 times a day. 6 mL 4 4 Active pantoprazole (PROTONIX) 40 MG EC tablet Take 1 tablet by mouth Daily. 90 tablet 1 5 Active ferrous sulfate 325 (65 FE) MG tablet Take 1 tablet by mouth Daily With Breakfast. 30 tablet 5 5 Active Plecanatide (Trulance) 3 MG tabletIndication s:Chronic idiopathic constipation Take 1 tablet by mouth Every Morning. 90 tablet 1 5 Active vitamin D (ERGOCALCIFEROL) 1.25 MG (89306 UT) capsule capsule Take 1 capsule by mouth once a week 13 capsule 5 Active Xarelto 20 MG tablet Take 1 tablet by mouth once daily 90 tablet 5 Active Jardiance 10 MG tablet tabletIndication s:Chronic systolic congestive heart failure Take 1 tablet by mouth once daily 90 tablet 5 Active allopurinol (ZYLOPRIM) 300 MG tabletIndication s:Acute gout of ankle, unspecified cause, unspecified laterality Take 1 tablet by mouth once daily 90 tablet 5 Active escitalopram (LEXAPRO) 10 MG tabletIndication s:Acute stress disorder Take 1 tablet by mouth Daily. 90 tablet 1 5 Active Tresiba FlexTouch 100 UNIT/ML solution pen-injector injectionIndicat ions:Type 2 diabetes mellitus with diabetic neuropathy, without long-term current use of insulin Inject 20 Units under the skin into the appropriate area as directed Daily. 45 mL 5 5 Active zolpidem (AMBIEN) 10 MG tabletIndication s:Primary insomnia Take 1 tablet by mouth At Night As Needed for Sleep. 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 11/25/2019 Diabetic polyneuropathy asso ciated with type 2 diabetes mellitus 06/18/2019 Chronic idiopathic constipation 09/04/2018 First degree heart block 03/05/2018 Hypertensive heart disease w ith chronic systolic congestive heart failure 03/05/2018 Peripheral arterial occlusive disease 03/05/2018 Type 2 diabetes mellitus wit h diabetic neuropathy, without long-term current use of insulin 03/10/2016 Obstructive sleep apnea syndrome 03/10/2016 Overview (06/28/2022): Not using CPAP Hypercholesterolemia 03/10/2016 Chronic coronary artery disease 03/10/2016 Vitamin D deficiency 03/10/2016 Essential hypertension 03/10/2016 Gastroesophageal reflux disease without esophagi tis 03/10/2016 Resolved Problems Problem Noted Date Diagnosed Date Resolved Date Tachycardia 08/07/2023 02/22/2024 Systolic CHF 08/07/2023 12/03/2024 Sinus bradycardia 08/07/2023 02/22/2024 Diabetic leg ulcer 08/07/2023 Angina pectoris 08/07/2023 08/26/2024 Old myocardial infarction 03/05/2018 Presence of stent in artery 03/05/2018 12/03/2024 Obesity, morbid, BMI 50 or higher 12/12/2016 05/27/2024 Abnormal stress test 06/05/2016 018 Chest pressure 06/05/2016 06/12/2016 Dyspnea on exertion 06/05/2016 06/29/20 21 Fatigue 06/05/2016 06/29/2021 Hearing loss 06/05/2016 06/29/2021 Left ankle pain 06/05/2016 06/05/2018 Left foot pain 06/05/2016 06/05/2018 Muscle pain 06/05/2016 02/22/2024 Urination decrease 06/05/2016 8 Encounters Date Type Department Care Team Description 03/09/2025 Results Follow-Up [facility] [address] [place] [phone] Allen Ding MD 03/06/2025 8:30 AM EDT Office Visit [facility] [address] [phone] Allen Ding MD Type 2 diabetes mellitus with diabetic neuropathy, without long-term current use of insulin (Primary Dx); Acute stress disorder; Acute gout of ankle, unspecified cause, unspecified laterality; Hypercholesterolemia ; Screening for prostate cancer; Elevated sed rate 03/06/2025 Travel 02/17/2025 Telephone [facility] [address] [phone] Allen Ding MD 02/04/2025 Refill [facility] [address] [facility] [place] [phone] Allen Ding MD Chronic systolic congestive heart failure; Acute gout of ankle, unspecified cause, unspecified laterality from Last 3 Months Immunizations Immunization Administration Dates Next Due Flu Vaccine Quad PF >36MO 06/10/2018,08/02/2016 Fluzone (or Fluarix & Flulav al for VFC) >6mos 06/10/2018,08/02/2016 Fluzone High-Dose 65+YRS 08/06/2024,05/25,07/20/2020,07/17 Fluzone High-Dose 65+yrs 06/04/2023,10/0 01/2022,06/20/2021,07/20 Pneumococcal Conjugate 13-Va lent (PCV13) 03/05/2018 Pneumococcal Polysaccharide (PPSV23) 07/17/2019 Shingrix 03/08/2018 Tdap 03/08/2018 Family History Medical History Relation Name Comments Diabetes type II Mother Relation Name Status Comments Father Mother Social History Tobacco Use Types Packs/Day Years [...] on file Sexual Orientation Not on file Last Filed Vital Signs Vital Sign Reading Time Taken Comments Blood Pressure 112/62 03/06/2025 8:23 AM EDT Pulse 76 03/06/2025 8:23 AM EDT Temperature 37.1 C (98.7 F) 03/06/2025 8:23 AM EDT Respiratory Rate 20 03/06/2025 8:23 AM EDT Oxygen Saturation 98% 03/06/2025 8:23 AM EDT Inhaled Oxygen Concentration - - Weight 89.8 kg (198 lb) 03/06/2025 8:23 AM EDT Height 167.6 cm (5' 5.98 ) 03/06/2025 8:23 AM ED T Body Mass Index 31.98 03/06/2025 8:23 AM EDT Plan of Treatment Upcoming Encounters Date Type Department Care Team (Late st Contact Info) Description 05/29/2025 9:00 AM EDT Office Visit [facility] [address] [phone] Allen Ding MD [address] [address] Health Maintenance Due Date Last Done Comments COLOGUARD 02/13/1997 COLON CANCER SCREENING 5 YEA R SIGMOIDOSCOPY 02/13/1997 CT COLONOGRAPHY 02/13/1997 FECAL OCCULT BLOOD TEST 02/13/1997 FIT Testing (1 year) 02/13/1997 DIABETIC FOOT EXAM 06/12/2018 06/12/2017, 0 06/12/2017, 06/12/2017, Additional history exists COVID-19 Vaccine ( - 2023-2 5 season) 2024 ANNUAL WELLNESS VISIT 05/27/2025 05/27/2024 , 04/25/2023, 01/09/2022, Additional history exists INFLUENZA VACCINE 06/24/2025 08/06/2024, , 06/04/2023, Additional history exists LIPID PANEL 08/26/2025 08/26/2024, 10/26, 08/07/2023, Additional history exists HEMOGLOBIN A1C 09/05/2025 03/06/2025, 11/22, 08/26/2024, Additional history exists DIABETIC EYE EXAM 10/27/2025 10/27/2024, , 10/31/2021, Additional history exists URINE MICROALBUMIN-CREATININ E RATIO (uACR) 12/05/2025 12/05/2024, 12/12/2016 TDAP/TD VACCINES (2 - Td or Tdap) 03/08/2028 018 COLONOSCOPY 03/22/2030 03/22/2020, 11/02/2009 COLORECTAL CANCER SCREENING 03/22/2030 HEPATITIS C SCREENING Completed 03/16/2017, 017 ZOSTER VACCINE Completed 03/08/2018, 12/12/2016 AAA SCREEN ONCE Completed 05/22/2019, 07/27, 06/10/2018 Pneumococcal Vaccine 50+ Completed 07/17/2019, 02/22 Procedures Procedure Name Priority Date/Time Associated Diagnosis Comments CBC AND DIFFERENTIAL Routine 03/06/2025 8:54 AM EDT Type 2 diabetes mellitus with diabetic neuropathy, without long-term current use of insulin PSA SCREEN Routine 03/06/2025 8:54 AM EDT Screening for prostate cancer URIC ACID Routine 03/06/2025 8:54 AM EDT Acute gout of ankle, unspecified cause, unspecified laterality C-REACTIVE PROTEIN Routine 03/06/2025 8: 54 AM EDT Elevated sed rate SEDIMENTATION RATE Routine 03/06/2025 8: 54 AM EDT Elevated sed rate HEMOGLOBIN A1C Routine 03/06/2025 8:54 AM EDT Type 2 diabetes mellitus with diabetic neuropathy, without long-term current use of insulin COMPREHENSIVE METABOLIC PANEL Routine 03/06/2025 8:54 AM EDT Type 2 diabetes mellitus with diabetic neuropathy, without long-term current use of insulin POC ALBUMIN/CREATININE RATIO Routine 12/05/2024 11:16 AM EDT Type 2 diabetes mellitus with diabetic neuropathy, without long-term current use of insulin SCANNED - EYE EXAM 10/27/2024 LIPID PANEL Routine 08/26/2024 9:01 AM EST Hypercholesterolemi a SCANNED - INFLUENZA 08/06/2024 CT ANGIO ABDOMINAL AORTA BILAT ILIOFEM RUNOFF Routine 05/22/2019 12:26 PM EDT Essential (primary) hypertension Abnormal ankle brachial index (SHIRLEY) Peripheral vascular disease HEPATITIS PANEL, ACUTE Routine 7 9:00 AM EDT from Last 3 Months or Most Recently Relevant to Health Maintenance Results * PSA Screen (03/06/2025 8:54 AM EDT) PSA 0.421 0.000 - 4.000 ng/mL [facility] Comment: Testing Method: [employer] Electrochemiluminescence Immunoassay(ECLIA) Values obtained with different assay methods or kits cannot be used interchangeably. Blood 03/06/2025 8:5 4 AM EDT 03/06/2025 Narrative [facility] - 03/07/2025 3:07 AM EDT Performed at: [address] [place] [id number] International Travel Consultant: Bradford Pena MD, Phone: [phone] Patient Fasting: Y Allen Ding MD LAB BLOOD ORDERABLES Final Resu lt Performing Organization Address [facility] de Phone Number [facility] [address] [place] [address], [place] [phone] [facility] [address] [place] [address], [place] [phone] * (ABNORMAL) Sedimentation Rate (03/06/2025 8:54 AM EDT) [facility] Sed Rate 24(H) 0 - 20 mm/hr [facility] Blood 03/06/2025 8:54 AM EDT 03/06/2025 Narrative [facility] - 03/07/2025 3:07 AM EDT Performed at: [address] [place] [id number] International Travel Consultant: Bradford Pena MD, Phone: [phone] Patient Fasting: Y us Allen Ding MD LAB BLOOD ORDERABLES Final Resu lt Performing Organization Address [facility] de Phone Number [facility] [address] [place] [address], [place] [phone] [facility] [address] [place] [address], [place] [phone] * (ABNORMAL) CBC & Differential (03/06/2025 8:54 AM EDT) [facility] WBC 6.85 3.40 - 10.80 10*3/mm3 [facility] RBC 4.69 4.14 - 5.80 10*6/mm3 [facility] Hemoglobin 14.0 13.0 - 17.7 g/dL [facility] Hematocrit 43.9 37.5 - 51.0 % [facility] MCV 93.6 79.0 - 97.0 fL [facility] MCH 29.9 26.6 - 33.0 pg [facility] MCHC 31.9 31.5 - 35.7 g/dL [facility] RDW 14.4 12.3 - 15.4 % [facility] Platelets 207 140 - 450 10*3/mm3 [facility] Neutrophil Rel % 72.1 42.7 - 76.0 % [facility] Lymphocyte Rel % 10.9(L) 19.6 - 45.3 % [facility] Monocyte Rel % 12.1(H) 5.0 - 12.0 % [facility] Eosinophil Rel % 3.5 0.3 - 6.2 % [facility] Basophil Rel % 1.0 0.0 - 1.5 % [facility] Neutrophils Absolute 4.93 1.70 - 7.00 10*3/mm3 [facility] Lymphocytes Absolute 0.75 0.70 - 3.10 10*3/mm3 [facility] Monocytes Absolute 0.83 0.10 - 0.90 10*3/mm3 [facility] Eosinophils Absolute 0.24 0.00 - 0.40 10*3/mm3 [facility] Basophils Absolute 0.07 0.00 - 0.20 10*3/mm3 [facility] Immature Granulocyte Rel % 0.4 0.0 - 0.5 % [facility] Immature Grans Absolute 0.03 0.00 - 0.05 10*3/mm3 [facility] nRBC 0.0 0.0 - 0.2 /100 WBC [facility] Blood 03/06/2025 8:54 AM EDT 03/06/2025 Narrative [facility] - 03/07/2025 3:07 AM EDT Performed at: [address] [id number] International Travel Consultant: Bradford Pena MD, Phone: [phone] Patient Fasting: Y us Allen Ding MD LAB BLOOD ORDERABLES Final Resu lt [facility] [address] [place] [address], [place] [phone] [facility] [address] [place] [address], [place] [phone] * (ABNORMAL) C-reactive Protein (03/06/2025 8:54 AM EDT) Pathologist [facility] C-Reactive Protein 1.63(H) 0.00 - 0.50 mg/dL [facility] Blood 03/06/2025 8:54 AM EDT 03/06/2025 Narrative [facility] - 03/07/2025 3:07 AM EDT Performed at: [address] [place] [id number] International Travel Consultant: Bradford Pena MD, Phone: [phone] Patient Fasting: Y us Allen Ding MD LAB BLOOD ORDERABLES Final Resu lt Performing Organization Address City/[facility] de Phone Number [facility] [address] [place] [address], [place] [phone] [facility] [address] [place] [address], [place] [phone] * Uric Acid (03/06/2025 8:54 AM EDT) [facility] Uric Acid 4.5 3.4 - 7.0 mg/dL [facility] Blood 03/06/2025 8:54 AM EDT 03/06/2025 Narrative [facility] - 03/07/2025 3:07 AM EDT Performed at: [address] [place] [address] [address] [place], [place] [id number] International Travel Consultant: Bradford Pena MD, Phone: [phone] Patient Fasting: Y us Allen Ding MD LAB BLOOD ORDERABLES Final Resu lt Performing Organization Address City/[facility]/ZIP Co de Phone Number [facility] [address] [place] [address], [place] [phone] [facility] [address] [place] [address], [place] [phone] * (ABNORMAL) Hemoglobin A1c (03/06/2025 8:54 AM EDT) Hemoglobin A1C 5.70(H) 4.80 - 5.60 % [facility] Comment: Hemoglobin A1C Ranges: Increased Risk for Diabetes 5.7% to 6.4% Diabetes >= 6.5% Diabetic Goal < 7.0% Blood 03/06/2025 8:54 AM EDT 03/06/2025 Narrative [facility] - 03/07/2025 3:07 AM EDT Performed at: [address] [place] [id number] International Travel Consultant: Bradford Pena MD, Phone: [phone] Patient Fasting: Y us Allen Ding MD LAB BLOOD ORDERABLES Final Resu lt [facility] [address] [place] [phone], [facility] [address] [place] [address], * (ABNORMAL) Comprehensive Metabolic Panel (03/06/2025 8:54 AM EDT) Pathologist [facility] Glucose 86 65 - 99 mg/dL [facility] BUN 20.0 8.0 - 23.0 mg/dL [facility] Creatinine 1.30(H) 0.76 - 1.27 mg/dL [facility] EGFR Result 58.0(L) >60.0 mL/min/1.7 3 [facility] Comment: GFR Categories in Chronic Kidney Disease (CKD) GFR Category GFR (mL/min/1.73) Interpretation G1 90 or greater Normal or high (1) G2 60-89 Mild decrease (1) G3a 45-59 Mild to moderate decrease G3b 30-44 Moderate to severe decrease G4 15-29 Severe decrease G5 14 or less Kidney failure (1)In the absence of evidence of kidney disease, neither GFR category G1 or G2 fulfill the criteria for CKD. eGFR calculation 2020 CKD-EPI creatinine equation, which does not include race as a factor BUN/Creatinine Ratio 15.4 7.0 - 25.0 [facility] Sodium 143 136 - 145 mmol/L [facility] Potassium 3.7 3.5 - 5.2 mmol/L [facility] Chloride 103 98 - 107 mmol/L [facility] Total CO2 26.5 22.0 - 29.0 mmol/L [facility] Calcium 9.6 8.6 - 10.5 mg/dL [facility] Total Protein 6.1 6.0 - 8.5 g/dL [facility] Albumin 4.0 3.5 - 5.2 g/dL [facility] Globulin 2.1 gm/dL [facility] A/G Ratio 1.9 g/dL [facility] Total Bilirubin 0.6 0.0 - 1.2 mg/dL [facility] Alkaline Phosphatase 128(H) 39 - 117 U/L [facility] AST (SGOT) 18 1 - 40 U/L [facility] ALT (SGPT) 8 1 - 41 U/L [facility] Blood 03/06/2025 8:54 AM EDT 03/06/2025 Narrative [facility] - 03/07/2025 3:07 AM EDT Performed at: [address] [place] [id number] International Travel Consultant: Bradford Pena MD, Phone: [phone] Patient Fasting: Y us Allen Ding MD LAB BLOOD ORDERABLES Final Resu lt [facility] [address] [place] [address], [facility] [address] [place] [address], [place] [phone] * (ABNORMAL) POC Albumin/Creatinine Ratio Urine (12/05/2024 11:16 AM EDT) POC ALBUMIN, URINE 30 mg/L POC CREATININE, URINE 50 mg/dL POC Urine Albumin Creatinine Ratio 30-300 <30 Lot Number [id number] Expiration Date 09/23/2025 Urine 12/05/2024 11:1 6 AM EDT us Allen Ding MD POINT OF CARE TEST ORDERABLES F inal Result * EYE EXAM SCANNED (10/27/2024) Anatomical Region Laterality Modality Other us Allen Ding MD CHART REVIEW TABS Final Resu lt * (ABNORMAL) Lipid Panel (08/26/2024 9:01 AM EST) Total Cholesterol 162 0 - 200 mg/dL 08/26/2024 11:19 PM EST [facility] Triglycerides 112 0 - 150 mg/dL 08/26/2024 11:19 PM EST [facility] HDL Cholesterol 35(L) 40 - 60 mg/dL 08/26/2024 11:19 PM EST [facility] LDL Cholesterol 106(H) 0 - 100 mg/dL 08/26/2024 11:19 PM EST [facility] VLDL Cholesterol 21 5 - 40 mg/dL 08/26/2024 11:19 PM EST [facility] LDL/HDL Ratio 2.99 08/26/2024 11:19 PM EST [facility] Blood Venipuncture / Unknown 08/26/2024 9:01 AM EST 08/26/2024 9:01 AM EST Narrative [facility] - 08/26/2024 11:19 PM EST Cholesterol Reference Ranges (U.S. Department of Health and Human Services ATP III Classifications) Desirable <200 mg/dL Borderline High 200-239 mg/dL High Risk >240 mg/dL Triglyceride Reference Ranges (U.S. Department of Health and Human Services ATP III Classifications) Normal <150 mg/dL Borderline High 150-199 mg/dL High 200-499 mg/dL Very High >500 mg/dL HDL Reference Ranges (U.S. Department of Health and Human Services ATP III Classifications) Low <40 mg/dl (major risk factor for CHD) High >60 mg/dl ('negative' risk factor for CHD) LDL Reference Ranges (U.S. Department of Health and Human Services ATP III Classifications) Optimal <100 mg/dL Near Optimal 100-129 mg/dL Borderline High 130-159 mg/dL High 160-189 mg/dL Very High >189 mg/dL Allen Ding MD LAB BLOOD ORDERABLES Final Resu lt [facility]
[address] [place] [address], * IMAGING SCANNED (08/06/2024) [facility] CHART REVIEW TABS Final Re sult * CT Angio Abdominal Aorta Bilateral Iliofem Runoff With & Without Contrast (05/22/2019 12:26 PM EDT) Anatomical Region Laterality Modality Vascular, Chest, Abdomen N/A Compute d Tomography 05/22/2019 3:46 PM EDT Impressions 05/23/2019 8:34 AM EDT There is no large vessel occlusion. There are scattered calcifications but without evidence of high-grade stenosis involving the aorta, iliac vessels, common femoral vessels, superficial femoral, popliteal and trifurcation vessels. E: 05/22/2019 This report was finalized on 05/23/2019 8:[address] Juan Currie MD. Narrative 05/23/2019 8:34 AM EDT EXAMINATION: CT ANGIO ABDOMINAL AORTA AND BILATERAL ILIOFEMORAL RUNOFF W WO CONTRAST-05/22/2019: INDICATION: Abnormal SHIRLEY; T39-Bnewardsa (primary) hypertension; R68.89-Other general symptoms and signs; I73.9-Peripheral vascular disease, unspecified. TECHNIQUE: CT angiogram of the abdomen, pelvis and lower extremities was performed with images acquired prior to and following intravenous contrast. Images are displayed in the axial, sagittal and coronal projections (3-D). The radiation dose reduction device was turned on for each scan per the ALARA (As Low as Reasonably Achievable) protocol. COMPARISON: NONE. FINDINGS: The most superior images demonstrate no basilar inflammatory process or pleural effusion. The liver and spleen are normal. There is no adrenal or pancreatic mass. There is no renal mass, stone or obstruction. There is no ascites, aneurysm or retroperitoneal lymphadenopathy. There is no pelvic mass or fluid, and there is no inguinal lymphadenopathy. The CT angiogram demonstrates patent celiac and superior mesenteric arteries. Both renal arteries are patent. The infrarenal abdominal aorta demonstrates atherosclerotic calcification but no significant stenosis or aneurysm. Both common iliac arteries are patent with mild atherosclerotic calcification but no high-grade stenosis. The internal and external iliac arteries are patent as are the common femoral arteries. Both superficial femoral arteries are patent. The popliteal arteries are patent. The trifurcation vessels are patent bilaterally. Procedure Note Ruslan Currie MD - 05/23/2019 EXAMINATION: CT ANGIO ABDOMINAL AORTA AND BILATERAL ILIOFEMORAL RUNOFF W WO CONTRAST-05/22/2019: INDICATION: Abnormal SHIRLEY; X93-Ezvxeuehy (primary) hypertension; R68.89-Other general symptoms and signs; I73.9-Peripheral vascular disease, unspecified. TECHNIQUE: CT angiogram of the abdomen, pelvis and lower extremities was performed with images acquired prior to and following intravenous contrast. Images are displayed in the axial, sagittal and coronal projections (3-D). The radiation dose reduction device was turned on for each scan per the ALARA (As Low as Reasonably Achievable) protocol. COMPARISON: NONE. FINDINGS: The most superior images demonstrate no basilar inflammatory process or pleural effusion. The liver and spleen are normal. There is no adrenal or pancreatic mass. There is no renal mass, stone or obstruction. There is no ascites, aneurysm or retroperitoneal lymphadenopathy. There is no pelvic mass or fluid, and there is no inguinal lymphadenopathy. The CT angiogram demonstrates patent celiac and superior mesenteric arteries. Both renal arteries are patent. The infrarenal abdominal aorta demonstrates atherosclerotic calcification but no significant stenosis or aneurysm. Both common iliac arteries are patent with mild atherosclerotic calcification but no high-grade stenosis. The internal and external iliac arteries are patent as are the common femoral arteries. Both superficial femoral arteries are patent. The popliteal arteries are patent. The trifurcation vessels are patent bilaterally. IMPRESSION: There is no large vessel occlusion. There are scattered calcifications but without evidence of high-grade stenosis involving the aorta, iliac vessels, common femoral vessels, superficial femoral, popliteal and trifurcation vessels. E: 05/22/2019 This report was finalized on 05/23/2019 8:[address] Juan Currie MD. Allen Ding MD IMG CT ORDERABLES Final Result * Hepatitis Panel, Acute (03/16/2017 9:00 AM EDT) Hep A IgM Negative Negative [facility] Hepatitis B Surface Ag Negative Negative [facility] Hep B Core IgM Negative Negative [facility] Hep C Virus Ab <0.1 0.0 - 0.9 s/co ratio [facility] Comment: Negative: < 0.8 Indeterminate: 0.8 - 0.9 Positive: > 0.9 The CDC recommends that a positive HCV antibody result be followed up with a HCV Nucleic Acid Amplification test (008452). 03/16/2017 9:00 AM EDT 03/16/2017 Narrative [facility] ([facility]) - 03/17/2017 5:12 AM EDT Performed at: - [address] [id number] International Travel Consultant: Italo Lin PhD, Phone: [phone] Patient Fasting: Y Allen Ding MD LAB BLOOD ORDERABLES Final Resu lt [facility] [facility] [address] [id number], [facility] [address] [place] [address], [place] [phone] from Last 3 Months or Most Recently Relevant to Health Maintenance [place] [address] [address] PPO MEDICARE A & B Care Teams Resawyer Relationship Specialty Start Date End Date Allen Ding MD [address] [address] [place] [address] PCP - General 09/20/15
--- NOTE | 2025-05-06 08:00 | CA_ITS ---
FINAL REPORT CLINICAL HISTORY: Bruit L. H/O throat cancer, CAD-AR, DM COMPARISON: None FINDINGS: RIGHT CAROTID: CCA PSV -59 cm/sec ICA PSV -85 cm/sec ICA/CCA PSV ratio -1.6. Comments: Mild plaque disease is noted. LEFTCAROTID: CCA PSV -86. cm/sec ICA PSV -128. cm/sec ICA/CCA PSV ratio -2.14. Comments: Moderate plaque disease is noted. Antegrade flow is seen within the vertebral arteries. IMPRESSION: Carotid stenosis classified less than 50% Reviewed, Interpreted and Dictated by Jaylyn Zamudio MD Transcribed by Piedad Desai Authenticated and [facility]
== END 2025-05-06 23:59 | disposition home or self-care (01) ==
LOC: RT 07:34
PROVIDERS: PCP Family Medicine; Visit Provider Physician Assistant
DX: I65.23 Occlusion and stenosis of bilateral carotid arteries (principal); I11.9 Hypertensive heart disease without heart failure; I25.5 Ischemic cardiomyopathy; I25.10 Atherosclerotic heart disease of native coronary artery without angina pectoris; E11.9 Type 2 diabetes mellitus without complications; Z85.89 Personal history of malignant neoplasm of other organs and systems
CPT/HCPCS: 93880